=== PATIENT | female | born 1995 | race Caucasian/White ===

== ENCOUNTER 2017-04-21 06:20 | Emergency (ER) | payer MEDICAID ==
[~2017-04-21] VITALS: Ht 165.1 cm; Wt 79.5 kg
[~2017-04-21 06:20] MED LIST: CEPH500C5 PO; PHEN-873 PO
[2017-04-21] MEDS ORDERED: naproxen 500mg tablet PO ONE (06:40)
[2017-04-21 07:08] LABS: URINE HCG NEGATIVE (NEG)
[2017-04-21 07:10] LABS: CLARITY,URINE Cloudy (Clear); COLOR,URINE Yellow (Yellow); GLUCOSE, URINE Negative (Neg); KETONES,URINE Trace mg/dl (Neg); LEUKOCYTE ESTERASE ,URINE Large (Neg); NITRITES, URINE Positive (Neg); OCCULT BLOOD,URINE Small (Neg); PH,URINE 5.5 (4.8-8.0); PROTEIN,URINE 100 mg/dl (Neg)
[2017-04-21 07:11] LABS: UA COLLECTION TYPE CLN CATCH MIDSTREAM
[2017-04-21 07:18] LABS: BACTERIA,URINE 3+ /HPF (Neg); MUCUS STRANDS NONE SEEN /LPF (Neg); SQUAMOUS EPITHELIAL CELL,UR FEW /LPF (FEW)
[2017-04-21 07:19] LABS: CAL OXALATE CRYSTALS FEW /HPF (NEGATIVE); WBC,URINE 50-100 /HPF (0-4)
[2017-04-21 07:20] LABS: URINE AMPHETAMINE SCREEN POSITIVE (Neg); URINE BARBITUATE SCREEN NEGATIVE (Neg); URINE BENZODIAZEPINES SCREEN NEGATIVE (Neg); URINE CANNABINOID SCREEN POSITIVE (Neg); URINE COCAINE SCREEN NEGATIVE (Neg); URINE METHADONE SCREEN NEGATIVE (Neg); URINE OPIATE SCREEN NEGATIVE (Neg); URINE PHENCYCLIDINE SCREEN NEGATIVE (Neg)
[2017-04-21] MEDS ORDERED: ciprofloxacin 250mg tablet PO ONE (07:30)
[2017-04-21] MEDS ORDERED: CIPR-260 PO (07:31)
[2017-04-21] MEDS ORDERED: NAPR-56 PO (07:32)
[2017-04-21 08:16] VITALS: BP 138/71
== END 2017-04-21 08:15 | disposition home or self-care (01) ==
LOC: ER 06:20
DX: N39.0 Urinary tract infection, site not specified (principal); M25.511 Pain in right shoulder; F15.10 Other stimulant abuse, uncomplicated; F12.10 Cannabis abuse, uncomplicated; Z88.8 Allergy status to other drugs, medicaments and biological substances
CPT/HCPCS: 73030; 80305; 81001; 81025; 99285

== ENCOUNTER 2017-11-01 14:53 | Emergency (ER) | payer MEDICAID ==
[~2017-11-01] VITALS: Ht 165.1 cm; Wt 80.5 kg
[~2017-11-01 14:53] MED LIST changes: -CEPH500C5 PO; +CIPR-260 PO
[2017-11-01 14:58] VITALS: BP 123/72
[2017-11-01] MEDS ORDERED: CEPH500C5 PO (15:53)
[2017-11-01] MEDS ORDERED: SULF1TAB49 PO (15:53)
== END 2017-11-01 16:37 | disposition home or self-care (01) ==
LOC: ER 14:53
DX: L02.01 Cutaneous abscess of face (principal); F12.90 Cannabis use, unspecified, uncomplicated; F15.90 Other stimulant use, unspecified, uncomplicated; Z59.0 Homelessness; Z87.440 Personal history of urinary (tract) infections; Z88.8 Allergy status to other drugs, medicaments and biological substances
CPT/HCPCS: 99283

== ENCOUNTER 2018-01-02 18:36 | Emergency (ER) | payer MEDICAID ==
[~2018-01-02] VITALS: Ht 165.1 cm; Wt 67.8 kg
[~2018-01-02 18:36] MED LIST changes: +CEPH500C5 PO; +PHEN-786 PO; -PHEN-873 PO
[2018-01-02 18:56] VITALS: BP 127/76
[2018-01-02] MEDS ORDERED: CefTRIAXone 1000mg IM Kit (w/lidocaine diluent) IM ONE (19:05)
[2018-01-02] MEDS ORDERED: azithromycin 250mg tablet PO ONE (19:05)
== END 2018-01-02 19:49 | disposition home or self-care (01) ==
LOC: ER 18:37
DX: A64 Unspecified sexually transmitted disease (principal); F12.90 Cannabis use, unspecified, uncomplicated; F15.90 Other stimulant use, unspecified, uncomplicated; Z88.1 Allergy status to other antibiotic agents; Z87.440 Personal history of urinary (tract) infections; Z59.0 Homelessness
CPT/HCPCS: 36415; 87491; 87591; 96372; 99284; J0696

== ENCOUNTER 2018-06-21 14:47 | Emergency (ER) | payer MEDICAID ==
[~2018-06-21] VITALS: Ht 165.1 cm; Wt 76.0 kg
[2018-06-21 14:48] VITALS: BP 117/68
[2018-06-21] MEDS ORDERED: normal saline 1000ML IV soln IVB ONE (14:55)
[2018-06-21 15:29] LABS: BASOPHILS % (AUTO) 0.5 % (0-1); EOSINOPHILS # (AUTO) 0.1 X10'3 (0-0.9); EOSINOPHILS % (AUTO) 1.7 % (0-6); HEMOGLOBIN 13.1 g/dl (12.0-16.0); LYMPHOCYTES # (AUTO) 2.8 X10'3 (1.1-4.8); LYMPHOCYTES % (AUTO) 42.7 % (21-51); MEAN CORPUSCULAR HEMOGLOBIN 29.7 PG (27.0-31.0); MEAN CORPUSCULAR HGB CONC 33.6 g/dL (33.0-36.5); MEAN CORPUSCULAR VOLUME 88.5 FL (78-98); MEAN PLATELET VOLUME 7.3 FL (7.4-10.4); MONOCYTES # (AUTO) 0.4 X10'3 (0-0.9); MONOCYTES % (AUTO) 5.6 % (2-12); NEUTROPHILS # (AUTO) 3.2 X10'3 (1.8-7.7); NEUTROPHILS % (AUTO) 49.5 % (42-75); PLATELET COUNT 238 X10'3 (140-440); RED CELL DISTRIBUTION WIDTH 14.2 % (11.5-14.5); WHITE BLOOD COUNT 6.4 X10'3 (4.5-11.0)
[2018-06-21 15:43] LABS: ALANINE AMINOTRANSFERASE 20 U/L (12-78); ALBUMIN 3.6 G/DL (3.4-5.0); ALBUMIN/GLOBULIN RATIO 1.1 (1.1-1.5); ALKALINE PHOSPHATASE 52 IU/L (46-116); ANION GAP 6 (8-16); ASPARTATE AMINO TRANSFERASE 12 U/L (10-37); BILIRUBIN,TOTAL 0.4 MG/DL (0.1-1.0); BLOOD UREA NITROGEN 11 MG/DL (7-18); BUN/CREATININE RATIO 15.7 (6.6-38.0); CALCIUM 8.5 MG/DL (8.5-10.1); CHLORIDE 109 MMOL/L (99-107); GLUCOSE 92 MG/DL (70-104); POTASSIUM 3.7 MMOL/L (3.5-5.1); SODIUM 140 MMOL/L (135-145); TOTAL CARBON DIOXIDE 24.9 MMOL/L (24-32); TOTAL PROTEIN 6.8 G/DL (6.4-8.2); eGFR > 90 ML/MIN
[2018-06-21 15:46] LABS: URINE HCG NEGATIVE (NEG)
[2018-06-21 15:47] LABS: CLARITY,URINE CLEAR (Clear); COLOR,URINE YELLOW (Yellow); GLUCOSE, URINE NEGATIVE (Neg); KETONES,URINE NEGATIVE (Neg); LEUKOCYTE ESTERASE ,URINE NEGATIVE (Neg); NITRITES, URINE NEGATIVE (Neg); OCCULT BLOOD,URINE SMALL (Neg); PH,URINE 5.5 (4.8-8.0); PROTEIN,URINE NEGATIVE (Neg); UROBILINOGEN,URINE 0.2 E.U/dL (0.2-1.0)
[2018-06-21 15:49] LABS: UA COLLECTION TYPE CLN CATCH MIDSTREAM
[2018-06-21 15:59] LABS: BACTERIA,URINE NONE SEEN /HPF (Neg); MUCUS STRANDS FEW /LPF (Neg); RBC,URINE 0-2 /HPF (0-2); SQUAMOUS EPITHELIAL CELL,UR FEW /LPF (FEW); WBC,URINE 0-4 /HPF (0-4)
--- NOTE | 2018-06-21 16:10 | NUR ---
US tech at bedside.
== END 2018-06-21 17:13 | disposition home or self-care (01) ==
LOC: ER 14:47
DX: N93.8 Other specified abnormal uterine and vaginal bleeding (principal); F12.90 Cannabis use, unspecified, uncomplicated; F15.90 Other stimulant use, unspecified, uncomplicated; F17.200 Nicotine dependence, unspecified, uncomplicated; Z59.0 Homelessness; Z88.8 Allergy status to other drugs, medicaments and biological substances; Z79.899 Other long term (current) drug therapy
CPT/HCPCS: 36415; 76830; 76856; 80053; 81001; 81025; 85025; 86885; 86900; 86901; 99284; J7030

== ENCOUNTER 2018-11-25 13:18 | Emergency (ER) | payer MEDICAID ==
[~2018-11-25] VITALS: Ht 165.1 cm; Wt 70.0 kg
[~2018-11-25 13:18] MED LIST changes: -CEPH500C5 PO
[2018-11-25 14:00] VITALS: BP 116/53
[2018-11-25] MEDS ORDERED: azithromycin 250mg tablet PO ONE (16:35)
[2018-11-25] MEDS ORDERED: CefTRIAXone 250MG IM Kit w/LIDOcaine IM ONE (16:35)
[2018-11-25] MEDS ORDERED: penicillin G benzathine 1.2 million unit/2ml syringe IM ONE ×2 (16:40)
--- NOTE | 2018-11-25 17:00 | NUR ---
vaginal swab collected prior to abx
[2018-11-25 17:31] LABS: URINE HCG NEGATIVE (NEG)
[2018-11-25 17:44] LABS: CLARITY,URINE SLIGHTLY CLOUDY (Clear); COLOR,URINE YELLOW (Yellow); GLUCOSE, URINE NEGATIVE (Neg); KETONES,URINE NEGATIVE (Neg); LEUKOCYTE ESTERASE ,URINE NEGATIVE (Neg); NITRITES, URINE NEGATIVE (Neg); OCCULT BLOOD,URINE MODERATE (Neg); PROTEIN,URINE NEGATIVE (Neg); UROBILINOGEN,URINE 0.2 E.U/dL (0.2-1.0)
[2018-11-25 17:51] LABS: UA COLLECTION TYPE CLN CATCH MIDSTREAM
--- NOTE | 2018-11-25 17:58 | NUR ---
gave abx neg
[2018-11-25] MEDS ORDERED: ACYC200C PO (18:03)
[2018-11-25] MEDS ORDERED: IBUP-1984 PO (18:04)
[2018-11-25 18:08] LABS: BACTERIA,URINE FEW /HPF (Neg); RBC,URINE 0-2 /HPF (0-2); SQUAMOUS EPITHELIAL CELL,UR FEW /LPF (FEW); WBC,URINE 0-4 /HPF (0-4)
[2018-11-27 09:09] LABS: RPR Reactive (Non Reactive)
== END 2018-11-25 18:12 | disposition home or self-care (01) ==
LOC: ER 13:18
DX: N90.89 Other specified noninflammatory disorders of vulva and perineum (principal); F12.90 Cannabis use, unspecified, uncomplicated; F15.90 Other stimulant use, unspecified, uncomplicated; Z59.0 Homelessness; Z88.8 Allergy status to other drugs, medicaments and biological substances; Z79.2 Long term (current) use of antibiotics; Z79.899 Other long term (current) drug therapy
CPT/HCPCS: 36415; 81001; 81025; 86592; 87210; 87252; 96372; 99284; J0561; J0696

== ENCOUNTER 2019-02-14 20:51 | Emergency (ER) | payer MEDICAID ==
[~2019-02-14] VITALS: Ht 165.1 cm; Wt 68.0 kg
[2019-02-14 20:52] VITALS: BP 125/81
[2019-02-14] MEDS ORDERED: SULF1TAB48 PO (21:20)
== END 2019-02-14 21:26 | disposition home or self-care (01) ==
LOC: ER 20:52
DX: L03.211 Cellulitis of face (principal); F12.90 Cannabis use, unspecified, uncomplicated; F15.90 Other stimulant use, unspecified, uncomplicated; F10.99 Alcohol use, unspecified with unspecified alcohol-induced disorder; Z59.0 Homelessness; Z88.8 Allergy status to other drugs, medicaments and biological substances; Z79.899 Other long term (current) drug therapy; Y90.9 Presence of alcohol in blood, level not specified
CPT/HCPCS: 99283

== ENCOUNTER 2020-12-13 22:01 | Emergency (ER) | payer MEDICAID ==
[~2020-12-13] VITALS: Ht 165.1 cm; Wt 68.2 kg
[2020-12-13 22:19] VITALS: BP 112/71
[2020-12-13] MEDS ORDERED: acetaminophen 325mg tablet PO ONE (23:25)
[2020-12-13 23:51] LABS: D-DIMER 0.26 MG/L FEU (0-0.50)
== END 2020-12-14 00:45 | disposition home or self-care (01) ==
LOC: ER 22:02
DX: U07.1 COVID-19 (principal); F12.90 Cannabis use, unspecified, uncomplicated; F15.90 Other stimulant use, unspecified, uncomplicated; Z72.89 Other problems related to lifestyle; Z59.00 Homelessness unspecified; Z79.2 Long term (current) use of antibiotics; Z79.899 Other long term (current) drug therapy
CPT/HCPCS: 36415; 85379; 87635; 99283; C9803